=== PATIENT | male | born 1985 | race Caucasian/White ===

== ENCOUNTER 2018-01-02 19:53 | Emergency (ER) | payer OTHER, MEDICARE ==
[~2018-01-02] VITALS: Ht 185.4 cm; Wt 77.2 kg
[2018-01-02] MEDS ORDERED: AUGMENTIN875 MG PO (20:33)
[2018-01-02 20:51] VITALS: BP 120/78
== END 2018-01-02 20:51 | disposition home or self-care (01) ==
LOC: EME 19:53
PROC: 3E0234Z Introduction of Serum, Toxoid and Vaccine into Muscle, Percutaneous Approach (ICD-10-PCS; principal; 2018-01-02)
DX: S62.664A Nondisplaced fracture of distal phalanx of right ring finger, initial encounter for closed fracture (principal); S60.511A Abrasion of right hand, initial encounter; S60.512A Abrasion of left hand, initial encounter; Y04.2XXA Assault by strike against or bumped into by another person, initial encounter; Z23 Encounter for immunization
CPT/HCPCS: 73130; 99281; 99283